=== PATIENT | male | born 1955 | race Asian ===

== ENCOUNTER 2016-12-19 11:17 | Inpatient (IN) | payer OTHER ==
[~2016-12-19] VITALS: Ht 167.6 cm; Wt 115.5 kg
[~2016-12-19 11:17] MED LIST: ASPI-664 PO; ATOR40TA68 PO; LOSA100T7 PO; MTF1000T PO; OMEG-135 PO; PANT40TA3 PO; PIOG45TA6 PO; TRIA1CAP PO
[2016-12-19] MEDS ORDERED: CEFEPIME 2GM/50 ML (PMX) 50 ML IVPB STA (12:09)
[2016-12-19] MEDS ORDERED: VANCOMYCIN 1 GM (PMX) 250 ML IVPB ONE (12:30)
[2016-12-19] MEDS ORDERED: NICOTINE (21 MG/24 HR) PATCH TRANSDERM ONE (13:00)
[2016-12-19 13:06] LABS: ALBUMIN 3.4 g/dl (3.3-4.9)
[2016-12-19 13:07] LABS: EOSINOPHILS % 2.5 % (0.0-7.0); LYMPHOCYTES # 0.7 10^3/ul (0.8-2.9); MEAN CORPUSCULAR HGB CONC 31.1 g/dl (32.0-37.0); MONOCYTE # 0.6 10^3/ul (0.3-0.9); POTASSIUM 4.4 mmol/L (3.5-5.1)
[2016-12-19 13:09] LABS: ALBUMIN/GLOBULIN RATIO 0.89; BILIRUBIN,INDIRECT 0.4 mg/dl (0-1.1); BILIRUBIN,TOTAL 0.4 mg/dl (0.2-1.3); CALCIUM 8.9 mg/dl (8.4-10.2); CREATININE 1.14 mg/dl (0.61-1.24); TOTAL PROTEIN 7.2 g/dl (6.1-8.1)
--- NOTE | 2016-12-19 13:19 | RADRPT ---
PROCEDURE: XR Chest. CLINICAL INDICATION: Sepsis TECHNIQUE: Single frontal chest x-ray. COMPARISON: 05/29/2016 FINDINGS: Cardiomegaly with slight increase hilar vascular and interstitial congestive changes are present. . There are no alveolar infiltrates, edema, or effusions.. .. The osseous structures are intact. IMPRESSION: Cardiomegaly with increase hilar vascular and interstitial congestive changes.. RPTAT: RR .Lawrence Champion MD, MD Date Time Electronically viewed and signed by .Lawrence Champion MD, on 12/19/2016 13:18 .L/
[2016-12-19 13:44] LABS: BASOPHILS % 0.5 % (0.0-2.0); EOSINOPHILS # 0.2 10^3/ul (0.0-0.5); HEMATOCRIT 55.4 % (42.0-52.0); HEMOGLOBIN 17.3 g/dl (14.0-18.0); LYMPHOCYTES % 11.7 % (15.0-51.0); MEAN CORPUSCULAR HEMOGLOBIN 28.3 pg (29.0-33.0); MEAN CORPUSCULAR VOLUME 90.9 fl (82.0-101.0); MEAN PLATELET VOLUME 9.1 fl (7.4-10.4); MONOCYTES % 9.6 % (0.0-11.0); NEUTROPHIL # 4.6 10^3/ul (1.6-7.5); NEUTROPHILS % 75.7 % (39.0-77.0); PLATELET COUNT 133 10^3/UL (140-440); RED CELL DISTRIBUTION WIDTH 20.2 % (11.5-14.5); UNCORRECTED WBC 6.1 10^3/ul (4.8-10.8); WHITE BLOOD COUNT 6.1 10^3/ul (4.8-10.8)
[2016-12-19 13:48] LABS: CONDITION 1; LH ANALYZER COMMENTS 1
[2016-12-19] MEDS ORDERED: ONDANSETRON 4 MG INJ IV PRN ×2 (14:30→16:00)
[2016-12-19] MEDS ORDERED: FUROSEMIDE 40 MG INJ IV ONE (14:30)
[2016-12-19] MEDS ORDERED: ACETAMINOPHEN 325 MG TAB PO PRN ×2 (14:30→16:00)
[2016-12-19] MEDS ORDERED: ERTAPENEM SODIUM 1 GM in SOD CHLORIDE 0.9% 100 ML IVPB ONE (14:30)
--- NOTE | 2016-12-19 14:35 | ERA ---
ER Documentation Chief Complaint Date/Time DATE: 12/19/16 TIME: 14:32 Chief Complaint BILATERAL LOWER LEG SWELLING AND RIGHT LEG WOUND. NOT BETTER WITH ABX HPI This is 61-year-old male who has history of chronic lower extremity edema. The patient denies having any heart failure. The patient states that he has had some cellulitis on his legs in the past. Patient states that the redness is getting much worse on both legs especially the right. He states that he was put on antibiotics Keflex and Bactrim for 10 days and he just finished the course of antibiotics is worsening. Denies fever or any significant pain. No shortness of breath denies chest pain. Says he has no fevers no abdominal pain vomiting diarrhea. ROS All systems reviewed and are negative except as per history of present illness. Medications Home Meds Active Scripts Pantoprazole* (Protonix*) 40 Mg Tablet.dr, 40 MG PO DAILY for 30 Days, TAB Prov:BLADIMIR ORTEGA 05/30/16 Fish Oil* (Fish Oil*) 1,000 Mg Cap, 1000 MG PO BID, #60 CAP Prov:PHOENIX DORADO 02/25/15 Reported Medications Metformin* (Glucophage*) 1,000 Mg Tablet, 1000 MG PO BID, #60 TAB 05/25/16 Triamterene-HCTZ* (Triamterene-HCTZ*) 37.5 - 25 Mg Capsule, 1 CAP PO DAILY, CAP 05/25/16 Atorvastatin* (Atorvastatin*) 40 Mg Tablet, 40 MG PO HS, TAB 07/28/15 Aspirin* (Aspirin* EC) 81 Mg Tablet.dr, 81 MG PO DAILY, TAB 07/28/15 Pioglitazone Hcl* (Actos*) 45 Mg Tablet, 45 MG PO DAILY, TAB 07/28/15 Losartan Potassium* (Losartan Potassium*) 100 Mg Tablet, 100 MG PO DAILY, TAB 07/28/15 Allergies Allergies: Coded Allergies: No Known Allergy (Unverified , 12/19/16) PMhx/Soc Medical and Surgical Hx: pt denies Medical Hx History of Surgery: No Anesthesia Reaction: No Hx Neurological Disorder: No Hx Respiratory Disorders: No Hx Cardiac Disorders: Yes (HTN) Hx Psychiatric Problems: No Hx Alcohol Use: Yes Hx Substance Use: No Hx Tobacco Use: Yes Smoking Status: Current every day smoker FmHx Family History: No coronary disease Physical Exam Vitals Vital Signs Date Time Temp Pulse Resp B/P Pulse Ox O2 Delivery O2 Flow Rate FiO2 12/19/16 12:58 Nasal Cannula 2 12/19/16 12:00 98.3 92 21 134/74 92 Room Air 12/19/16 11:24 98.8 85 22 129/75 89 Physical Exam Const: [Well-developed, well-nourished] Head: [Atraumatic, normocephalic] Eyes: [Normal Conjunctiva, PERRLA, EOMI, normal sclera, no nystagmus] ENT: [Normal External Ears, Nose and Mouth, moist mucus membranes.] Neck: [Full range of motion. No meningismus, no lymphadenopathy.] Resp: [No increased work of breathing, bilateral rhonchi] Cardio: [Regular rate and rhythm, no murmurs, S1 S2 present] Abd: [Soft, non tender x 4, non distended. Normal bowel sounds, no guarding or rebound, no pulsitile abdominal masses or bruits] Skin: [No petechiae or rashes, no ecchymosis , no maculopapular rash] Back: [No midline or flank tenderness] Ext: [No cyanosis, +4 pitting edema to both lower extremities with diffuse erythema there is some skin breakdown on the right talley there is also streaking up the medial aspect of both thighs, FROM x 4,n, neurovascularly intact x 4] Neur: [Awake and alert, STR 5/5 x 4, sensation intact x 4, no focal findings, cerebellum intact] Psych: [Normal Mood and Affect] Result Diagram: 12/19/16 1210 12/19/16 1210 Results 24 hrs Laboratory Tests Test 12/19/16 12:10 Alanine Aminotransferase (ALT/SGPT) 30IU/L Albumin 3.4g/dl Albumin/Globulin Ratio 0.89 Alkaline Phosphatase 83IU/L Anion Gap 14 Aspartate Amino Transf (AST/SGOT) 33IU/L B-Type Natriuretic Peptide 919PG/ML Basophils # 0.010^3/ul Basophils % 0.5% Blood Morphology Comment Blood Urea Nitrogen 17mg/dl Calcium Level 8.9mg/dl Carbon Dioxide Level 34mmol/L Chloride Level 98mmol/L Creatinine 1.14mg/dl Direct Bilirubin 0.00mg/dl Eosinophils # 0.210^3/ul Eosinophils % 2.5% Globulin 3.80g/dl Glucose Level 153mg/dl Hematocrit 55.4% Hemoglobin 17.3g/dl Indirect Bilirubin 0.4mg/dl Lymphocytes # 0.710^3/ul Lymphocytes % 11.7% Mean Corpuscular Hemoglobin 28.3pg Mean Corpuscular Hemoglobin Concent 31.1g/dl Mean Corpuscular Volume 90.9fl Mean Platelet Volume 9.1fl Monocytes # 0.610^3/ul Monocytes % 9.6% Neutrophils # 4.610^3/ul Neutrophils % 75.7% Nucleated Red Blood Cells # 0.010^3/ul Nucleated Red Blood Cells % 0.0/100WBC Platelet Count 00649^3/UL Potassium Level 4.4mmol/L Red Blood Count 6.1010^6/ul Red Cell Distribution Width 20.2% Sodium Level 142mmol/L Total Bilirubin 0.4mg/dl Total Protein 7.2g/dl White Blood Count 6.110^3/ul Current Medications Medications (Trade) Dose Ordered Sig/Kevin Route PRN Reason Start Time Stop Time Status Last Admin Dose Admin Cefepime HCl 50 ml @ 100 mls/hr ONCE STAT IVPB 12/19/16 12:09 12/19/16 12:38 DC 12/19/16 12:26 Vancomycin HCl (Vancocin) 250 ml @ 125 mls/hr ONCE ONCE IVPB 12/19/16 12:30 12/19/16 14:29 12/19/16 12:55 Nicotine (Nicoderm 21 Mg/ 24hr) 1 patch ONCE ONCE TRANSDERM 12/19/16 13:00 12/19/16 13:01 DC Furosemide 40 mg 40 mg ONCE ONCE IV 12/19/16 14:30 12/19/16 14:31 UNV Ertapenem/Sodium Chloride (Invanz/NS) 100 ml @ 200 mls/hr ONCE ONCE IVPB 12/19/16 14:30 12/19/16 14:59 UNV Procedures/MDM PROCEDURE: XR Chest. CLINICAL INDICATION: Sepsis TECHNIQUE: Single frontal chest x-ray. COMPARISON: 05/29/2016 FINDINGS: Cardiomegaly with slight increase hilar vascular and interstitial congestive changes are present. . There are no alveolar infiltrates, edema, or effusions.. .. The osseous structures are intact. IMPRESSION: Cardiomegaly with increase hilar vascular and interstitial congestive changes.. RPTAT: RR .Lawrence Champion MD, Date Time Electronically viewed and signed by .Lawrence Champion MD, MD on 12/19/2016 13:18 .L/ CC: NEVAEH FLORES DO Patient has worsening bilateral lower extremity cellulitis despite antibiotic therapy. Will admit. He was given Invanz 1 g here. Patient's O2 saturations are 91% on room air he is put on oxygen his chest x- ray does show pulmonary edema. His BNP is currently pending and he was given Lasix IV here. Will need to be worked up for heart failure as the patient states he does not have congestive heart failure. Departure Diagnosis: Primary Impression: Bilateral lower leg cellulitis Additional Impression: CHF (congestive heart failure) Qualified Code: I50.9 - Congestive heart failure, unspecified congestive heart failure chronicity, unspecified congestive heart failure type Condition: Stable NEVAEH FLORES DO Dec 19, 2016 14:35
[2016-12-19] MEDS ORDERED: DEXTROSE 50% 50 ML SYRINGE IV PRN ×2 (16:00)
[2016-12-19] MEDS ORDERED: morphine 2 MG INJ IV PRN (16:00)
[2016-12-19] MEDS ORDERED: GLUCAGON 1 MG INJ IM PRN (16:00)
[2016-12-19] MEDS ORDERED: GLUCOSE GEL 15 GRAM TUBE BUCCAL PRN (16:00)
[2016-12-19] MEDS ORDERED: DOCUSATE SODIUM 100 MG CAP PO PRN (16:00)
[2016-12-19] MEDS ORDERED: NACL 0.9% 3 ML SYG IV SCH (16:00)
[2016-12-19] MEDS ORDERED: GLUCOSE GEL 15 GRAM TUBE PO PRN ×2 (16:00)
[2016-12-19] MEDS ORDERED: HYDROCODONE/APAP (5/325) TAB PO PRN (16:00)
--- NOTE | 2016-12-19 16:19 | RADRPT ---
PROCEDURE: US Lower extremity Venous. CLINICAL INDICATION: Bilateral lower extremity swelling TECHNIQUE: Multiple sonographic images of the bilateral lower extremity deep venous system was obt ained utilizing grayscale, color-flow, compressive sonography and doppler imaging with augmentation. The images were reviewed on a PACS workstation. COMPARISON: None. FINDINGS: There is normal compressibility and flow within the bilateral common femoral, superficial femoral , posterior tibial and popliteal veins. RPTAT: AA IMPRESSION: No sonographic evidence for deep venous thrombosis. .Ky Ponce MD, MD Date Time Electronically viewed and signed by .Ky Ponce MD, on 12/19/2016 16:18 .S/
[2016-12-19 16:51] VITALS: TEMP 98.3
--- NOTE | 2016-12-19 17:35 | HP ---
DATE OF ADMISSION: 12/19/2016 PRIMARY CARE PHYSICIAN: Dr. Isaiah Cunha. CHIEF COMPLAINT: Bilateral lower extremity cellulitis and swelling. HISTORY OF PRESENT ILLNESS: This is a 61-year-old gentleman with past medical history of GI bleed, morbid obesity, hypertension, dyslipidemia, diabetes mellitus type 2 who was admitted to [facility] in 07/2015 and then 05/2016 for sepsis and GI bleed and lower extremity edema. Th e patient has been having this discomfort for the past 6 to 7 months and has been ongoing, although according to him, he has improved significantly the past. Although for the past several months, the patient has been having increased swelling in bilateral lower extremities with an ulcer on the talley area. He also complains of having mild shortness of breath. He denies any chest pain, abdominal p ain, nausea, vomiting, diarrhea. No change in visual acuity, diplopia, photophobia. No recent damien el history. No sick contact. He has been having decreased ambulation secondary to discomfort in hi s bilateral lower extremities. The patient denies having any abdominal pain, dysuria, hematuria, ur gency, incontinence, or any other discomfort except what was stated above. PAST MEDICAL AND SURGICAL HISTORY: As above per HPI. Dyslipidemia, GERD, diabetes mellitus, diabet ic neuropathy, CHF. MEDICATIONS: 1. Aspirin 81 mg. 2. Lipitor 40 mg. 3. Fish oil 1000 mg. 4. Losartan 100 mg. 5. Glucophage ____ mg. 6. Protonix 40 mg. 7. Actos 45 mg. 8. triamterene/hydrochlorothiazide 37.5/25 mg. ALLERGIES: NO KNOWN DRUG ALLERGIES. FAMILY HISTORY: Noncontributory. SOCIAL HISTORY: Used to smoke a pack of cigarettes per day. He still continues to smoke. No alcoh ol, no illicit drug. REVIEW OF SYSTEMS: As above per HPI, otherwise 12 review of systems has been found to be negative. PHYSICAL EXAMINATION: VITAL SIGNS: Temperature 98.3, pulse 92, respiration 21, blood pressure 134/74, oxygen 92% in room air. GENERAL APPEARANCE: The patient is lying in bed comfortably without any acute distress. He is awak e, alert, oriented. He is able to answer my questions properly. Body habitus is morbidly obese. EYES AND ENT: Conjunctivae and lids are normal. Pupils are normal. Extraocular normal. Hearing g rossly normal. Lips normal. He wears dentures. He is missing all his teeth. Oral mucosa mildly d ry. NECK: Supple. Trachea midline. No lymphadenopathy. RESPIRATORY: Effort is normal. Decreased breath sounds bilateral lower lung field. No crackles, r ales, or wheezing. CARDIOVASCULAR: Normal S1, S2. Regular rhythm and rate. No murmur. Positive 2 edema bilateral lo wer extremities. GASTROINTESTINAL: Abdomen contour is morbidly obese. No guarding, no rebound, nontender. Bowel so unds distant secondary to body habitus. EXTREMITIES: Upper extremities within normal limits. Lower extremities: There is erythema in bila teral lower extremities distally from the knee. There is stasis dermatitis in bilateral lower extre mities with some loss of skin in the anterior aspect of the talley. NEUROLOGIC: Cranial nerves II through XII are grossly intact. PSYCHIATRIC: Normal judgment and insight. Alert and oriented x3. Mood and affect is normal. LABORATORY WORK AND IMAGING: WBC 6.1, hemoglobin 17.3, hematocrit 54.4, platelets 133. Sodium 142, potassium 4.4, chloride 98, bicarbonate 34, BUN 17, creatinine 1.14, glucose 153, calcium 8.9. BNP 919. ASSESSMENT AND PLAN: 1. Bilateral lower extremity cellulitis. This is likely secondary to fluid overload versus congest ely heart failure. Podiatry has been consulted. We will place the patient on IV antibiotics via ce fepime. 2. Congestive heart failure. Cardiology has been consulted. We will continue patient's Losartan, triamterene/hydrochlorothiazide. Also, place the patient on Lasix. Obtain a 2D echocardiogram. [facility] cardiology recommendation. 3. Diabetes mellitus. Continue metformin, low-carbohydrate diet. 4. Essential hypertension, well controlled on medical management. 5. Dyslipidemia. Continue Lipitor. Follow up lipid panel in a.m. 6. Morbid obesity. Diet and exercise has been recommended. 7. For deep venous thrombosis prophylaxis, the patient will be ambulatory. We will place the patie nt on HANNAH hose. Refrain from using any pharmacologic deep vein thrombosis prophylaxis secondary to history of gastrointestinal bleed. 8. For gastrointestinal prophylaxis, on proton pump inhibitor. 9. We will continue to monitor patient closely. Further recommendations, management, and treatment as per clinical course. Total amount of time was spent for evaluation of patient and admission workup 40 minutes. Dictated By: CATHY DURAN/NTS Conf#: [id number] DID#: [id number]
[2016-12-19 17:53] VITALS: BP 125/69; RESP 17
[2016-12-19] MEDS: ASPIRIN (EC) 81 MG TAB PO SCH (18:14)
[2016-12-19] MEDS: metFORMIN 500 MG TAB PO SCH (18:15)
[2016-12-19] MEDS: FUROSEMIDE 20 MG INJ IV SCH (18:15)
[2016-12-19 18:33] VITALS: Ht 167.6 cm; Wt 115.5 kg
[2016-12-19 19:05] VITALS: PULSE 71
[2016-12-19 19:11] LABS: CK-MB 1.71 ng/ml (0.0-2.4)
[2016-12-19 19:12] LABS: TROPONIN-I 0.018 ng/ml (0.00-0.12)
--- NOTE | 2016-12-19 19:39 | CONS ---
Date/Time of Note Date/Time of Note DATE: 12/19/16 TIME: 19:38 Assessment/Plan Assessment/Plan Problems: (1) Bilateral lower leg cellulitis Status: Acute Comment: Lower extremity venous ultrasound recommended. Thank you again for involving me in the care of this patient. If you have any questions regarding this case, please feel free to contact me at pager: or reach me at mobile: [phone]. Additional Assessment/Plan Continue IV antibiotics. No surgery recommended at this time. Patient will require wound care and compression since there is no deep venous thrombosis. Triple layer compression to be changed every other day by wound nurse is recommended. Patient will be followed in-house. Thank you again for involving me in the care of this patient. If you have any questions regarding this case, please feel free to contact me at pager: or reach me at mobile: [phone]. Consultation Date/Type/Reason Admit Date/Time Dec 19, 2016 at 17:35 Date of Consultation: Dec 19, 2016 Reason for Consultation Lower leg cellulitis. Hx of Present Illness Thank you very much for giving me in the care of this patient. As you very well know this is a 61-year-old male patient with multiple medical problems including morbid obesity, hypertension, dyslipidemia, diabetes mellitus type 2, GI bleed who was admitted to the hospital on July 2015, May 2016 for sepsis and GI bleed and lower extremity edema. He returns to the hospital with an apparent cellulitis of his lower extremities with ulceration. I was consulted to evaluate and treat. Patient was seen at bedside and seems to be slightly lethargic. Reports pain in his lower legs. Denies fever and chills recently. As per history of present illness. Past Medical History As per history of present illness. Past Surgical History As per history of present illness. Past Surgical Hx: no surgical history Social History As per history of present illness. Smoking Status: Current every day smoker Exam/Review of Systems Vital Signs Vitals Vital Signs Date Time Temp Pulse Resp B/P Pulse Ox O2 Delivery O2 Flow Rate FiO2 12/19/16 19:05 71 12/19/16 17:53 98.9 17 125/69 89 12/19/16 16:51 Nasal Cannula 12/19/16 12:58 2 Exam This is a morbidly obese male patient who is laying supine in bed in no acute distress. Bilateral lower leg edema noted with erythema and multiple excoriations mainly on the anterior aspect of the left lower leg. There is no active pus and no bleeding. The area is warm to touch. Excoriations present on both lower extremities. Dorsalis pedis and posterior tibial pulses not palpable secondary to the edema present. There is decrease in sensation to sharp dull vibratory and temperature stimuli. Labs and x-rays were reviewed. Venous Doppler study shows no evidence of deep venous thrombosis. The study was done December 19, 2016. Results Result Diagram: 12/19/16 1210 12/19/16 1210 Results 24 hrs Laboratory Tests Test 12/19/16 12:10 12/19/16 18:23 12/19/16 18:30 Alanine Aminotransferase (ALT/SGPT) 30 Albumin 3.4 Albumin/Globulin Ratio 0.89 Alkaline Phosphatase 83 Anion Gap 14 Aspartate Amino Transf (AST/SGOT) 33 B-Type Natriuretic Peptide 919 H Basophils # 0.0 Basophils % 0.5 Blood Morphology Comment Blood Urea Nitrogen 17 Calcium Level 8.9 Carbon Dioxide Level 34 H Chloride Level 98 Creatinine 1.14 Direct Bilirubin 0.00 Eosinophils # 0.2 Eosinophils % 2.5 Globulin 3.80 H Glucose Level 153 Hematocrit 55.4 #H Hemoglobin 17.3 # Indirect Bilirubin 0.4 Lymphocytes # 0.7 L Lymphocytes % 11.7 L Mean Corpuscular Hemoglobin 28.3 L Mean Corpuscular Hemoglobin Concent 31.1 L Mean Corpuscular Volume 90.9 Mean Platelet Volume 9.1 Monocytes # 0.6 Monocytes % 9.6 Neutrophils # 4.6 Neutrophils % 75.7 Nucleated Red Blood Cells # 0.0 Nucleated Red Blood Cells % 0.0 Platelet Count 133 L Potassium Level 4.4 Red Blood Count 6.10 # Red Cell Distribution Width 20.2 #H Sodium Level 142 Total Bilirubin 0.4 Total Protein 7.2 White Blood Count 6.1 # Bedside Glucose 100 Creatine Kinase 66 Creatine Kinase Index 2.6 Creatinine Kinase MB (Mass) 1.71 Troponin I 0.018 Medications Medications Current Medications Ondansetron HCl (Zofran Inj) 4 mg Q6H PRN IV NAUSEA AND/OR VOMITING; Start 12/19 at 16:00 Acetaminophen (Tylenol Tab) 650 mg Q6H PRN PO PAIN LEVEL 1-3 OR FEVER; Start at 16:00 Acetaminophen/ Hydrocodone Bitart ([place] (5/325)) 1 tab Q6H PRN PO MODERATE PAIN LEVEL 4-6; Start 12/19/16 at 16:00 Morphine Sulfate (morphine) 2 mg Q4H PRN IV SEVERE PAIN LEVEL 7-10; Start at 16:00 Docusate Sodium (Colace) 100 mg Q12H PRN PO CONSTIPATION; Start 12/19/16 at 16: 00 Pantoprazole (Protonix Tab) 40 mg DAILY@06 PO ; Start 12/20/16 at 06:00 Aspirin (Halfprin) 81 mg DAILY PO Last administered on 12/19/16t 18:14; Admin Dose 81 MG; Start 12/19/16 at 16:00 Atorvastatin Calcium (Lipitor) 40 mg HS PO ; Start 12/19/16 at 21:00 Fish Oil (Fish Oil) 1,000 mg BID PO ; Start 12/19/16 at 21:00 Losartan Potassium (Cozaar) 100 mg DAILY PO ; Start 12/20/16 at 09:00 Pioglitazone HCl (Actos) 45 mg DAILY PO ; Start 12/20/16 at 09:00 Triamterene/HCTZ (Dyazide) 1 cap DAILY PO ; Start 12/20/16 at 09:00 Miscellaneous Information 1 ea NOTE XX ; Start 12/19/16 at 16:00 Glucose (Glutose) 15 gm Q15M PRN PO DECREASED GLUCOSE; Start 12/19/16 at 16:00 Glucose (Glutose) 22.5 gm Q15M PRN PO DECREASED GLUCOSE; Start 12/19/16 at 16:00 Dextrose (D50w Syringe) 25 ml Q15M PRN IV DECREASED GLUCOSE; Start 12/19/16 at 16:00 Dextrose (D50w Syringe) 50 ml Q15M PRN IV DECREASED GLUCOSE; Start 12/19/16 at 16:00 Glucagon (Glucagen) 1 mg Q15M PRN IM DECREASED GLUCOSE; Start 12/19/16 at 16:00 Glucose (Glutose) 15 gm Q15M PRN BUCCAL DECREASED GLUCOSE; Start 12/19/16 at 16: 00 EMILY RUTLEDGE DPM Dec 19, 2016 19:39
[2016-12-19 20:12] VITALS: PULSE 78
[2016-12-19 20:20] VITALS: BP 132/56; RESP 22
[2016-12-19] MEDS: ATORVASTATIN 40 MG TAB PO SCH (21:02)
[2016-12-19] MEDS: FISH OIL 1,000 MG CAP PO SCH (21:02)
[2016-12-20] VITALS (12 sets, daily range): BP systolic 119–143; BP diastolic 60–83; PULSE 76–89; RESP 16–20
[2016-12-20 00:27] LABS: CK-MB 1.13 ng/ml (0.0-2.4)
[2016-12-20 00:35] LABS: TROPONIN-I 0.021 ng/ml (0.00-0.12)
[2016-12-20] MEDS: PANTOPRAZOLE (EC) 40 MG TAB PO SCH (05:53)
[2016-12-20] MEDS: FUROSEMIDE 20 MG INJ IV SCH ×2 (05:53→18:08)
[2016-12-20 07:16] LABS: BASOPHILS % 0.3 % (0.0-2.0); EOSINOPHILS # 0.2 10^3/ul (0.0-0.5); HEMATOCRIT 54.8 % (42.0-52.0); HEMOGLOBIN 17.4 g/dl (14.0-18.0); LYMPHOCYTES % 15.4 % (15.0-51.0); MEAN CORPUSCULAR HEMOGLOBIN 28.6 pg (29.0-33.0); MEAN CORPUSCULAR HGB CONC 31.7 g/dl (32.0-37.0); MEAN CORPUSCULAR VOLUME 90.3 fl (82.0-101.0); MEAN PLATELET VOLUME 8.8 fl (7.4-10.4); MONOCYTE # 0.7 10^3/ul (0.3-0.9); MONOCYTES % 10.4 % (0.0-11.0); NEUTROPHIL # 4.4 10^3/ul (1.6-7.5); NEUTROPHILS % 70.9 % (39.0-77.0); PLATELET COUNT 158 10^3/UL (140-440); POTASSIUM 4.4 mmol/L (3.5-5.1); RED BLOOD COUNT 6.07 10^6/ul (4.70-6.10); RED CELL DISTRIBUTION WIDTH 20.6 % (11.5-14.5); UNCORRECTED WBC 6.3 10^3/ul (4.8-10.8); WHITE BLOOD COUNT 6.3 10^3/ul (4.8-10.8)
[2016-12-20 07:19] LABS: CREATININE 1.12 mg/dl (0.61-1.24)
[2016-12-20 07:20] LABS: CHOL/HDL RATIO 3.8 RATIO; CONDITION 1; LH ANALYZER COMMENTS 1
[2016-12-20 07:29] LABS: CK-MB 0.81 ng/ml (0.0-2.4)
[2016-12-20 07:32] LABS: TROPONIN-I 0.03 ng/ml (0.00-0.12)
[2016-12-20 07:50] LABS: THYROID STIMULATING HORMONE 3.55 MIU/L (0.465-4.680)
[2016-12-20] MEDS: FISH OIL 1,000 MG CAP PO SCH ×2 (08:15→20:45)
[2016-12-20] MEDS: LOSARTAN 50 MG TAB PO SCH (08:15)
[2016-12-20] MEDS: ASPIRIN (EC) 81 MG TAB PO SCH (08:15)
[2016-12-20] MEDS: TRIAMTERENE/HCTZ (37.5-25) CAP PO SCH (08:16)
[2016-12-20] MEDS: metFORMIN 500 MG TAB PO SCH ×2 (08:16→18:08)
[2016-12-20] MEDS: PIOGLITAZONE 45 MG TAB PO SCH (08:19)
[2016-12-20] MEDS ORDERED: ENOXAPARIN 40 MG/0.4 ML SYG SC SCH (09:00)
--- NOTE | 2016-12-20 11:33 | PDOCDIS ---
Discharge Instructions CONDITION Patient Condition: Stable HOME CARE INSTRUCTIONS: Special Diet: Low chlesterol low fat 2gm NA ACTIVITY: Activity Restrictions: Slowly Increase Activity Rest between Activity Avoid heavy lifting Avoid Heavy Housework FOLLOW UP/APPOINTMENTS Appointments Follow up with PCP in one week CATHY GARIBAY MD Dec 20, 2016 11:33
[2016-12-20] MEDS ORDERED: SAN30GM TOP (11:40)
[2016-12-20] MEDS ORDERED: POLY30OI TOP (11:40)
[2016-12-20] MEDS ORDERED: FURO20TA3 PO (11:40)
--- NOTE | 2016-12-20 13:08 | CONS ---
DATE OF ADMISSION: 12/19/2016 DATE OF CONSULTATION: 12/20/2016 REASON FOR CONSULTATION: EKG, congestive heart failure. REQUESTING PHYSICIAN: Dr. Lieberman from the hospitalist service. HISTORY OF PRESENT ILLNESS: Mr. Arenas is a 61-year-old male with a history of hypertension, dyslipidemia, diabetes mellitus, congestive heart failure, GI bleed who initially presented with lower extremity swelling, pain and erythema. Upon arrival, temperature of 98.8, blood pressure 129/75, pulse 85, respiratory rate 22, saturating 89%. The patient's labs revealed white count 6.1, hemoglobin 10.3, platelet count of 133. Sodium of 142, potassium 4. 4, creatinine 0.1, BUN 17. The patient's chest x-ray revealed cardiomegaly, increased hilar vascular and interstitial congestive changes. The patient underwent a venous ultrasound revealing no sonographic evidence for DVT. The patient's sonogram was currently on the chart for my review at this time. Patient subsequently admitted to the floor and since admit to the floor, has had a total of 3 negative troponins, ruling out for acute myocardial infarction. The patient denies chest pain. The patient has been placed on Losartan, Lasix diuresis and received antibiotics for lower extremity cellulitis. PAST MEDICAL HISTORY: As above in HPI. MEDICATIONS CURRENTLY IN HOSPITAL: 1. Losartan 100 mg daily. 2. Actos 40 mg daily. 3. Dyazide 1 cap daily. 4. Protonix 40 mg daily. 5. Lipitor 40 mg at bedtime. 6. Fish oil 1000 grams b.i.d. 7. Lasix 20 mg IV b.i.d. 8. Metformin 1000 mg b.i.d. 9. [place] p.r.n. 10. Morphine p.r.n. 11. Aspirin 81 mg daily. ALLERGIES: NO KNOWN DRUG ALLERGIES. SOCIAL HISTORY: Positive tobacco, social ETOH, no illicit drug use. FAMILY HISTORY: No history of sudden cardiac or early CAD. REVIEW OF SYSTEMS: As above in HPI. CONSTITUTIONAL: No fevers, chills. PULMONARY: Improving shortness breath. CARDIOVASCULAR: Congestive heart failure. GASTROINTESTINAL: No vomiting. GENITOURINARY: No hematuria. MUSCULOSKELETAL: Degenerative joint disease. PSYCHIATRIC: The patient denies depression. NEUROLOGIC: No documented history of CVA. ENDOCRINE: Diabetes mellitus. PHYSICAL EXAMINATION: VITAL SIGNS: Temperature of 98.9, blood pressure 134/72, pulse 81, respirations 17, oxygen saturation 91% on 2 liters. GENERAL: The patient is alert, awake, in no acute distress. NECK: JVP approximately 9 cm water. CHEST: Upper airway transmitted rhonchorous sounds. Mildly decreased breath sounds at bases bilaterally. HEART: Regular rate and rhythm. Normal S1, S2, I/ systolic murmur, nondisplaced PMI. ABDOMEN: Positive bowel sounds, soft. EXTREMITIES: There is 1+ edema. Difficult to palpate distal pulses bilateraly at the posterior tibial. Associated erythema, skin breakdown. LABORATORY DATA: As above in HPI, with most recent from today, sodium 142, potassium 4.4, creatinine 0.1, BUN 20. LDL 36, HDL 24. White blood cells 6.3, hemoglobin 10.4, platelet count 158. IMAGING STUDIES: As above in HPI. No further imaging studies for my review at this time. ECG: No electrocardiograms for my review at this time. IMPRESSION: 1. Congestive heart failure exacerbation, question systolic versus diastolic, improving with IV diuresis. 2. Hypertension. 3. Dyslipidemia. 4. Lower extremity cellulitis. 5. Lower extremity edema secondary to congestive heart failure and cellulitis. 6. Ongoing tobacco usage. 7. Diabetes mellitus. RECOMMENDATIONS: 1. At this time, would maintain the patient on Lasix diuresis and Losartan afterload reduction. 2. Continue the patient's current statin therapy. 3. Continue the patient's aspirin prophylaxis against cardiovascular events. 4. Continue the patient's antibiotics and follow up all culture data. 5. We will follow up the patient's 2D echo in order to assess ejection fraction , wall motion and rule out any major valve abnormalities and will order an EKG to assess for any changes post rule out. Thank you for allowing me to take part in the care of this patient. I will continue to follow very closely with you with further recommendations to be made as the patient progresses to his inpatient hospital clinical course. Dictated By: PRESLEY ZHANG/CECILIA Conf#: [id number] DID#: [id number] CC: CATHY GARIBAY MD;*EndCC* MTDD
--- NOTE | 2016-12-20 13:18 | RADRPT ---
Echocardiogram Report Patient Name: RAFFAELE DEVINE Gender: Male Date: 1955 Study Date: 20-Dec-2016 [place] Flaker: Arturo Epstein RDCS Location: [facility] Ref. Physician: CATHY GARIBAY Quality: Technically Difficult Study Procedures: Transthoracic echocardiogram with complete 2D, M-Mode, and doppler examination. Indications: Congestive Heart Failure. 2D/M Mode Doppler Measurement Value Normal Ranges Measurement Value Normal Ranges LVIDd 2D 5.3 3.5 - 5.6 cm AV Peak Thang 1.2 m/sec LVIDs 2D 3.1 2.1 - 4.1 cm AV Peak PG 5.8 mmHg LVPWd 2D 0.9 0.6 - 1.1 cm LVOT Peak Thang 1.0 m/sec IVSd 2D 0.8 0.6 - 1.1 cm LVOT Peak PG 4.4 mmHg AoR Diam 2D 2.9 2.0 - 3.7 cm MV E Peak Thang 0.5 m/sec EDV 2D 134.0 cm3 MV A Peak Thang 0.6 m/sec ESV 2D 29.9 cm3 MV E/A 0.9 LA Dimen 2D 5.1 2.3 - 4.0 cm MV Decel Time 101 msec MV Decel Dunn 5 MV E/A 0.9 Findings Left Ventricle: Normal left ventricular systolic function. Normal left ventricular cavity size. Normal left ventricular wall thickness. Ejection fraction is visually estimated at 60 %. Tissue Doppler/Mitral Doppler indices are consistent with impaired relaxation (Stage I diastolic dysfunction). Right Ventricle: Normal right ventricular systolic function. Not well visualized. Left Atrium: There is moderate enlargement of left atrium. LA Dimension5.10 cm. Right Atrium: There is moderate enlargement of right atrium. Mitral Valve: Normal appearance and function of the mitral valve with trace physiologic regurgitation. Aortic Valve: Normal appearance of the aortic valve. No significant aortic stenosis or insufficiency. Tricuspid Valve: Tricuspid valve not well visualized. Unable to obtain RVSP due to minimal presence of tricuspid regurgitation. Pericardium: Normal pericardium with no significant pericardial effusion. There is an anterior echo free space consistent with epicardial fat pad. Aorta: Normal aortic root. IVC: Dilated IVC without respiratory collapse consistent with elevated right atrial pressure. Conclusions Normal left ventricular systolic function. Normal left ventricular cavity size. Normal left ventricular wall thickness. Ejection fraction is visually estimated at 60 %. Tissue Doppler/Mitral Doppler indices are consistent with impaired relaxation (Stage I diastolic dysfunction). There is moderate enlargement of left atrium. LA Dimension5.10 cm. There is moderate enlargement of right atrium. Normal appearance and function of the mitral valve with trace physiologic regurgitation. Tricuspid valve not well visualized. Unable to obtain RVSP due to minimal presence of tricuspid regurgitation. Electronically Signed By: Beni Machado 20-Dec-2016 13:18:28 -0800 Patient Name: RAFFAELE DEVINE Study Date: 20-Dec-2016 [id number]
--- NOTE | 2016-12-20 13:19 | DS ---
DATE OF ADMISSION: 12/19/2016 DATE OF DISCHARGE: 12/20/2016 CREDIT CONTROL ASSISTANT: Wheat Grower. PROCEDURE: A 2D echocardiogram. DISPOSITION: Home with home health. DIAGNOSES: 1. Bilateral lower extremity cellulitis, likely secondary to fluid overload versus congestive heart failure. Patient was placed on IV antibiotic with cefepime, although, white blood count is within normal limits. We will discharge home on topical antibiotics. 2. Congestive heart failure. Continue losartan, triamterene and hydrochlorothiazide. Also, wallace walters has been placed on Lasix. Cardiology was consulted. Follow with cardiology as outpatient. 3. Diabetes mellitus. Continue metformin, low carbohydrate diet. 4. Essential hypertension, well controlled on losartan, triamterene and hydrochlorothiazide. 5. Dyslipidemia. Continue Lipitor. 6. Morbid obesity. Diet and exercise was recommended. PROCEDURE: Lower extremity Doppler, no evidence of DVT. MEDICATIONS: 1. Polysporin topical apply b.i.d. 2. Santyl apply b.i.d. 3. Lasix 20 mg daily. 4. Aspirin 81 mg daily. 5. Atorvastatin 40 mg daily. 6. Fish oil 1000 mg p.o. b.i.d. 7. Losartan 100 mg p.o. daily. 8. Metformin 1000 mg p.o. b.i.d. 9. Protonix 40 mg p.o. daily. 10. Actos 45 mg daily. 11. Triamterene/hydrochlorothiazide 37.5/25 one tab p.o. daily. ALLERGIES: NO KNOWN DRUG ALLERGIES. HOSPITAL COURSE: This is a 61-year-old gentleman, very poor historian with a past medical history o f GI bleed, morbid obesity, hypertension, dyslipidemia, diabetes mellitus type 2, GERD who presented to [facility] secondary to having 6 or 7 months of lower extremity edema and disc omfort with the skin cellulitis and erythema. Patient stated this has been going on for the past se veral months, has been off and on and has improved about 4 months ago, although, he has been getting progressively worse and he was seen and evaluated by his primary care physician and was asked to pr esent to the emergency room. Upon arrival to the ER the bilateral lower extremities has an ulcer on the talley area. He did also complain of having mild shortness of breath, denies any chest pain, abd ominal pain, nausea, vomiting, diarrhea. No recent travel history. No sick contact. The patient i s ambulatory although he has been having difficulty with ambulation. Upon evaluation in the course of the ER, WBC was 6.1, hemoglobin 17.3, hematocrit 54.4, platelets 133. Serial troponin was found to be negative. His BNP was elevated at 919, patient was started on IV Lasix, was continued on losa rtan, triamterene and hydrochlorothiazide. He had good output of 2100 mL of urine. Since his admis acrol, patient's lower extremity edema has improved significantly. His renal panel has been stable w ith a BUN of 20, creatinine 1.12. In regard to his lipid panel, lipid panel is well controlled on m edication. The patient denies any chest pain, shortness of breath, nausea, vomiting, diarrhea, or a ny other discomfort. PHYSICAL EXAMINATION: GENERAL: The patient is lying in bed comfortably without any distress. He is awake, alert. NECK: Supple. Trachea is midline. CARDIOVASCULAR: Normal S1, S2. Regular rhythm and rate. Decrease in edema bilateral lower extremi ties. LUNGS: Clear to auscultation bilaterally. ABDOMEN: Contour is morbidly obese. No ascites. Bowel sound is present. No guarding, no rebound. EXTREMITIES: Decrease in edema. The patient continues to have the erythema in his lower extremitie s, although, he has improved. At this time, the patient is medically stable to be discharged home a fter evaluation by Cardiology and further recommendation by him. CONDITION AT TIME OF DISCHARGE: Stable. LABORATORY: Sodium 142, potassium 4.4, chloride 97, bicarbonate 35, BUN 20, creatinine 1.12, glucos e 115, calcium 9.0, magnesium 2.0, troponin negative x3, triglyceride 160, total cholesterol 92, LDL 36, HDL 24. TSH 3.55. WBC 6.3, hemoglobin 17.5, hematocrit 54.8, platelets 158. CONDITION AT TIME OF DISCHARGE: Stable. Total amount of time was spent for evaluation of patient and discharge workup 40 minutes. Dictated By: CATHY GARIBAY MD PN/NTS Conf#: [id number] DID#: [id number]
[2016-12-20 18:51] LABS: AADO2 Arterial 17.9 mmHg (7.0-24.0); Allen Test ACCEPTAB; Arterial Base Excess 5.7 mmol/L (-3.0-3); Arterial COHb 1.4 % (0.0-3.0); Arterial Fraction of Oxyhgb 82.2 % (93.0-99.0); Arterial MetHb 0.3 % (0.0-1.5); Arterial Total Hemglobin 19.4 g/dl (12.0-18.0); MODE ROOM AIR
[2016-12-20] MEDS: ATORVASTATIN 40 MG TAB PO SCH (20:45)
[2016-12-21] VITALS (8 sets, daily range): BP systolic 111–124; BP diastolic 53–81; PULSE 68–76; RESP 18–19
[2016-12-21] MEDS: PANTOPRAZOLE (EC) 40 MG TAB PO SCH (05:49)
[2016-12-21] MEDS: FUROSEMIDE 20 MG INJ IV SCH (05:49)
[2016-12-21] MEDS: metFORMIN 500 MG TAB PO SCH (08:12)
[2016-12-21] MEDS: PIOGLITAZONE 45 MG TAB PO SCH (08:13)
[2016-12-21] MEDS: TRIAMTERENE/HCTZ (37.5-25) CAP PO SCH (08:14)
[2016-12-21] MEDS: FISH OIL 1,000 MG CAP PO SCH (08:14)
[2016-12-21] MEDS: LOSARTAN 50 MG TAB PO SCH (08:14)
[2016-12-21] MEDS: ASPIRIN (EC) 81 MG TAB PO SCH (08:15)
--- NOTE | 2016-12-21 11:39 | CONS ---
Date/Time of Note Date/Time of Note DATE: 12/21/16 TIME: 11:34 Assessment/Plan Assessment/Plan Chief Complaint/Hosp Course IMPRESSION: 1. Congestive heart failure exacerbation, Diastolic-by echo this admit likely acute on chronic, improving with IV diuresis.-negative troponin x 3 2. Hypertension. 3. Dyslipidemia. 4. Lower extremity cellulitis. 5. Lower extremity edema secondary to congestive heart failure and cellulitis. 6. Ongoing tobacco usage. 7. Diabetes mellitus. Recc: -Tele -serial ecg's -Continue losartan -Continue lasix diuresis -Follow volume status closely -Continue lipitor/fish oil/asa Problems: Consultation Date/Type/Reason Admit Date/Time Dec 19, 2016 at 14:26 Initial Consult Date 12/20/2015 Type of Consultation: Cardiology Reason for Consultation CHF Referring Provider: CATHY GARIBAY MD Exam/Review of Systems Vital Signs Vitals Vital Signs Date Time Temp Pulse Resp B/P Pulse Ox O2 Delivery O2 Flow Rate FiO2 12/21/16 11:23 98.2 78 19 123/62 95 12/20/16 20:00 Nasal Cannula 2.0 Intake and Output 12/20/16 12/20/16 12/21/16 15:00 23:00 07:00 Intake Total 900 ml 200 ml Balance 900 ml 200 ml Exam Review of Systems: CONSTITUTIONAL: No fevers, chills. PULMONARY: No sob CARDIOVASCULAR: No chest pain/palpitations GASTROINTESTINAL: No nausea/vomiting. GENITOURINARY: No hematuria/dysuria. MUSCULOSKELETAL: No myagias/arthalgias. PSYCHIATRIC: The patient denies depression. NEUROLOGIC: No weakness Constitutional: alert, oriented Psych: no complaints Head: normocephalic ENMT: mucosa pink and moist Neck: jvd (9 cm water), supple Respiratory: diminished breath sounds (at bases/B) Cardiovascular: regular rate and rhythm Gastrointestinal: non-tender, soft Musculoskeletal: muscle tone (normal) Extremities: edema (trace bilateral) Neurological: lethargic Results Result Diagram: 12/20/16 0630 12/20/16 0630 Results 24 hrs Laboratory Tests Test 12/20/16 17:58 Arterial Blood HCO3 35.0 H Arterial Blood Base Excess 5.7 H Arterial Blood Oxygen Saturation 83.6 L Ken Test ACCEPTAB Arterial Blood Gas Puncture Site Right Radial Arterial Blood Carboxyhemoglobin 1.4 Arterial Blood Date Drawn 12/20/2016 6:30:23 PM Arterial Blood Methemoglobin 0.3 Arterial Blood pCO2 (Temp correct) 67.5 H Arterial Blood pH (Temp corrected) 7.333 L Arterial Blood pO2 (Temp corrected) 51.0 *L Blood Gas A-a O2 Differential 17.9 Blood Gas Critical Value Read Back L LUZ MARINA RN Blood Gas Modality ROOM AIR Blood Gas Notified Time 12/20/2016 6:51:34 PM Blood Gas Notified Whom DT Blood Gas Specimen Source Blood arterial Blood Gas Temperature 37.0 FiO2 21.0 Oxyhemoglobin Percent 82.2 L Total Hemoglobin 19.4 H Medications Medications Current Medications Ondansetron HCl (Zofran Inj) 4 mg Q6H PRN IV NAUSEA AND/OR VOMITING; Start 12/19 at 16:00 Acetaminophen (Tylenol Tab) 650 mg Q6H PRN PO PAIN LEVEL 1-3 OR FEVER; Start at 16:00 Acetaminophen/ Hydrocodone Bitart ([place] (5/325)) 1 tab Q6H PRN PO MODERATE PAIN LEVEL 4-6; Start 12/19/16 at 16:00 Morphine Sulfate (morphine) 2 mg Q4H PRN IV SEVERE PAIN LEVEL 7-10; Start at 16:00 Docusate Sodium (Colace) 100 mg Q12H PRN PO CONSTIPATION; Start 12/19/16 at 16: 00 Pantoprazole (Protonix Tab) 40 mg DAILY@06 PO Last administered on 12/21/16 05: 49; Admin Dose 40 MG; Start 12/20/16 at 06:00 Aspirin (Halfprin) 81 mg DAILY PO Last administered on 12/21/16 08:15; Admin Dose 81 MG; Start 12/19/16 at 16:00 Atorvastatin Calcium (Lipitor) 40 mg HS PO Last administered on 12/20/16 20:45 ; Admin Dose 40 MG; Start 12/19/16 at 21:00 Fish Oil (Fish Oil) 1,000 mg BID PO Last administered on 12/21/16 08:14; Admin Dose 1,000 MG; Start 12/19/16 at 21:00 Losartan Potassium (Cozaar) 100 mg DAILY PO Last administered on 12/21/16 08:14 ; Admin Dose 100 MG; Start 12/20/16 at 09:00 Pioglitazone HCl (Actos) 45 mg DAILY PO Last administered on 12/21/16 08:13; Admin Dose 45 MG; Start 12/20/16 at 09:00 Triamterene/HCTZ (Dyazide) 1 cap DAILY PO Last administered on 12/21/16 08:14; Admin Dose 1 CAP; Start 12/20/16 at 09:00 Miscellaneous Information 1 ea NOTE XX ; Start 12/19/16 at 16:00 Glucose (Glutose) 15 gm Q15M PRN PO DECREASED GLUCOSE; Start 12/19/16 at 16:00 Glucose (Glutose) 22.5 gm Q15M PRN PO DECREASED GLUCOSE; Start 12/19/16 at 16:00 Dextrose (D50w Syringe) 25 ml Q15M PRN IV DECREASED GLUCOSE; Start 12/19/16 at 16:00 Dextrose (D50w Syringe) 50 ml Q15M PRN IV DECREASED GLUCOSE; Start 12/19/16 at 16:00 Glucagon (Glucagen) 1 mg Q15M PRN IM DECREASED GLUCOSE; Start 12/19/16 at 16:00 Glucose (Glutose) 15 gm Q15M PRN BUCCAL DECREASED GLUCOSE; Start 12/19/16 at 16: 00 PRESLEY LAZO Dec 21, 2016 11:39
--- NOTE | 2016-12-21 11:48 | RADRPT ---
Vent Rate: 81 bpm RR Interval: 0 msec MT Interval: 256 msec QRS Duration: 110 msec QT Interval: 398 msec QTC Interval: 462 msec P-R-T [place]: 50 - 137 - 44 degrees Sinus rhythm with 1st degree AV block Possible Left atrial enlargement Right axis deviation Incomplete right bundle branch block Right ventricular hypertrophy with repolarization abnormality Nonspecific T wave abnormality Prolonged QT Abnormal ECG Electronically Signed By: Jemal Sainz [id number]
--- NOTE | 2016-12-21 15:23 | DS ---
Date/Time of Note Date/Time of Note DATE: 12/21/16 TIME: 15:18 Discharge Summary Admission/Discharge Info Admit Date/Time Dec 19, 2016 at 14:26 Discharge Date/Time 12/21/16 Final Diagnosis DIAGNOSES: 1. Bilateral lower extremity cellulitis, likely secondary to fluid overload versus congestive heart failure. Patient was placed on IV antibiotic with cefepime, although, white blood count is within normal limits. We will discharge home on topical antibiotics. 2. Congestive heart failure. Continue losartan, triamterene and hydrochlorothiazide. Also, patient has been placed on Lasix. Cardiology was consulted. Follow with cardiology as outpatient. 3. Diabetes mellitus. Continue metformin, low carbohydrate diet. 4. Essential hypertension, well controlled on losartan, triamterene and hydrochlorothiazide. 5. Dyslipidemia. Continue Lipitor. 6. Morbid obesity. Diet and exercise was recommended. 7. Hypoxemia . Continue home oxygen Consults cardiology Hospital Course Is the addendum for discharge which was done by me on 12/20/2016 Upon discharge patient was found to be mildly hypoxic with oxygen saturation ranging between 88-90%. Patient denies of any chest pain. She was evaluated by the respiratory therapy and after obtaining oxygen saturation in room air patient did qualify for home oxygen therefore by case reviewer patient has been set up for home oxygen. This morning patient denies of any chest pain or shortness of breath he has been able to ambulate with minimal discomfort, he has been able to tolerate his oral intake without any difficulty. At this time patient is medically stable to be discharged home with a close follow-up with his primary care physician and cnc lathe machinist as outpatient Exam General: The patient is morbidly obese, Not in acute distress. HEENT: Atraumatic, normocephalic. The pupils are equal and round . Neck: Supple with full range of motion. Chest: Normal expansion of the thorax during inspiration Lungs: Clear to auscultation bilaterally Heart: Normal S1-S2, Regular rhythm and rate. Abdomen: Soft , nontender, nondistended , bowel sounds are present. Extremities: Normal to inspection, +1 edema no cyanosis, status dermatitis Neurologic: Normal mental status,The patient is awake, alert and oriented . Condition: Stable Home Meds Active Scripts Collagenase* (Santyl*) 30 Gm Oint..gm., 1 APPLIC TOP DAILY, #1 TUB Prov:CATHY GARIBAY MD 12/20/16 Bacitracin-Polymyxin* (Polysporin* Topical) 28.35 Gm Oint, 1 APPLIC TOP BID, # 30 TUB Prov:CATHY GARIBAY MD 12/20/16 Furosemide* (Furosemide*) 20 Mg Tablet, 20 MG PO DAILY, #30 TAB Prov:CATHY GARIBAY MD 12/20/16 Pantoprazole* (Protonix*) 40 Mg Tablet.dr, 40 MG PO DAILY for 30 Days, TAB Prov:JORDANBLADIMIR 05/30/16 Fish Oil* (Fish Oil*) 1,000 Mg Cap, 1000 MG PO BID, #60 CAP Prov:PHOENIX DORADO 02/25/15 Reported Medications Metformin* (Glucophage*) 1,000 Mg Tablet, 1000 MG PO BID, #60 TAB 05/25/16 Triamterene-HCTZ* (Triamterene-HCTZ*) 37.5 - 25 Mg Capsule, 1 CAP PO DAILY, CAP 05/25/16 Atorvastatin* (Atorvastatin*) 40 Mg Tablet, 40 MG PO HS, TAB 07/28/15 Aspirin* (Aspirin* EC) 81 Mg Tablet.dr, 81 MG PO DAILY, TAB 07/28/15 Pioglitazone Hcl* (Actos*) 45 Mg Tablet, 45 MG PO DAILY, TAB 07/28/15 Losartan Potassium* (Losartan Potassium*) 100 Mg Tablet, 100 MG PO DAILY, TAB 07/28/15 Pending Labs Laboratory Tests Test 12/20/16 17:58 Arterial Blood HCO3 35.0mmol/L (22.0-26.0) Arterial Blood Base Excess 5.7mmol/L (-3.0-3) Arterial Blood Oxygen Saturation 83.6mmHG (95.0-98.0) Ken Test ACCEPTAB Arterial Blood Gas Puncture Site Right Radial Arterial Blood Carboxyhemoglobin 1.4% (0.0-3.0) Arterial Blood Date Drawn 12/20/2016 6:30:23 PM Arterial Blood Methemoglobin 0.3% (0.0-1.5) Arterial Blood pCO2 (Temp correct) 67.5mmhg (35-45) Arterial Blood pH (Temp corrected) 7.333 (7.350-7.450) Arterial Blood pO2 (Temp corrected) 51.0mmHG (80-100.0) Blood Gas A-a O2 Differential 17.9mmHg (7.0-24.0) Blood Gas Critical Value Read Back L LUZ MARINA SOLIS Blood Gas Modality ROOM AIR Blood Gas Notified Time 12/20/2016 6:51:34 PM Blood Gas Notified Whom DT Blood Gas Specimen Source Blood arterial Blood Gas Temperature 37.0C FiO2 21.0% Oxyhemoglobin Percent 82.2% (93.0-99.0) Total Hemoglobin 19.4g/dl (12.0-18.0) CATHY GARIBAY MD Dec 21, 2016 15:22
== END 2016-12-21 15:20 | disposition home or self-care (01) | DRG 602 ==
LOC: E/R 11:17 → TEL 14:26 → UNDOADMIN 17:35
PROVIDERS: ADMIT Family Medicine; ATTEND Family Medicine
DX: L03.115 Cellulitis of right lower limb (principal); I50.33 Acute on chronic diastolic (congestive) heart failure; Z68.41 Body mass index [BMI] 40.0-44.9, adult; L03.116 Cellulitis of left lower limb; E11.9 Type 2 diabetes mellitus without complications; Z79.84 Long term (current) use of oral hypoglycemic drugs; F17.200 Nicotine dependence, unspecified, uncomplicated; I10 Essential (primary) hypertension; E78.5 Hyperlipidemia, unspecified; E66.01 Morbid (severe) obesity due to excess calories
CPT/HCPCS: 36415; 36600; 71010; 80048; 80053; 80061; 82550; 82553; 82803; 82962; 83735; 83880; 84443; 84484; 85025; 87040; 93005; 93306; 93923; 96374; 96375; J1940; J1335; J3370